=== PATIENT | female | born 1995 | race Caucasian/White ===

== ENCOUNTER 2018-04-10 15:13 | Emergency (ER) | payer OTHER, MEDICAID ==
[~2018-04-10] VITALS: Ht 167.6 cm; Wt 102.1 kg
[~2018-04-10 15:13] MED LIST: MACROBID 100 M100 M1 PO; PRENATAL PO; PROMETHAZINE12.5 M1 PO; TRAZODONE HCL50 MG PO
[2018-04-10] MEDS ORDERED: BIRTH CONTROL (15:38)
[2018-04-10 15:48] LABS: URINE BILIRUBIN NEGATIVE (Negative); URINE BLOOD NEGATIVE (Negative); URINE CLARITY CLEAR; URINE COLOR YELLOW; URINE GLUCOSE-RANDOM NEGATIVE (Negative); URINE KETONES NEGATIVE (Negative); URINE LEUKOCYTES-REFLEX NEGATIVE (Negative); URINE NITRITE-REFLEX NEGATIVE (Negative); URINE PROTEIN NEGATIVE (Negative); URINE SPECIFIC GRAVITY >= 1.030 (1.005-1.030); URINE UROBILINOGEN 0.2 E.U./dl (0.2-1.0)
[2018-04-10 15:53] LABS: ABSOLUTE BASOPHILS 0.1 thou/uL (0.0-0.2); ABSOLUTE EOSINOPHILS 0.2 thou/uL (0.0-0.7); ABSOLUTE LYMPHOCYTES 1.7 thou/uL (0.8-5.3); ABSOLUTE MONOCYTES 0.5 thou/uL (0.0-1.2); ABSOLUTE NEUTROPHILS 4.7 thou/uL (1.6-8.1); EOSINOPHILS 2.6 %; HEMATOCRIT 40.4 % (37.0-47.0); HEMOGLOBIN 13.6 gm/dL (12.0-15.0); LYMPHOCYTES 24.3 %; MCHC 33.7 g/dL (28.0-37.0); MONOCYTES 6.5 %; MPV 7.3 fl. (7.2-11.1); NUCLEATED RBCS 0 /100WBC; PLATELET COUNT* 284 thou/uL (150-400); POLYS 65.6 %; RBC 4.69 mil/uL (4.20-5.00); RDW-CV 12.4 % (10.5-14.5); WBC 7.2 thou/uL (4.0-11.0)
[2018-04-10 16:12] LABS: CALCIUM 8.9 mg/dL (8.5-10.1); CREATININE 0.7 mg/dL (0.6-1.3); POTASSIUM 3.6 mmol/L (3.5-5.1); TOTAL BILIRUBIN 0.4 mg/dL (<0.1-1.0); TOTAL PROTEIN 7.8 g/dL (6.4-8.2)
[2018-04-10 17:10] VITALS: BP 113/85
== END 2018-04-10 17:10 | disposition home or self-care (01) ==
LOC: M.ERS 15:13
PROVIDERS: Nurse Practitioner Family
DX: R19.7 Diarrhea, unspecified (principal)

== ENCOUNTER → 2019-03-02 | Outpatient (CLI) | payer OTHER ==
[~2019-03-02] MED LIST changes: +BIRTH CONTROL
== END ==
LOC: M.MRI 14:56
DX: J34.89 Other specified disorders of nose and nasal sinuses (principal); R51 Headache; H53.9 Unspecified visual disturbance; H57.9 Unspecified disorder of eye and adnexa

== ENCOUNTER 2019-12-22 12:27 | Emergency (ER) | payer OTHER, MEDICAID ==
[~2019-12-22] VITALS: Ht 167.6 cm; Wt 108.9 kg
[2019-12-22 13:27] VITALS: BP 134/81
== END 2019-12-22 13:29 | disposition home or self-care (01) ==
LOC: M.ERS 12:27
DX: O99.513 Diseases of the respiratory system complicating pregnancy, third trimester (principal); Z20.828 Contact with and (suspected) exposure to other viral communicable diseases; Z3A.35 35 weeks gestation of pregnancy